=== PATIENT | female | born 1965 | race Hispanic/Latino ===

== ENCOUNTER 2022-01-20 13:40 | Emergency (ER) | payer BC ==
--- OUTSIDE RECORDS SUMMARY | 2022-01-20 13:44 | XMS REPORT | Continuity of Care Document ---
:[address] [facility] t Address [address] [place] [address] Care Team Providers Name Role Phone Pcp, Patient Does Not Have A Primary Care Physician +[id number] Sabine Minor MD Attending Clinician SABINE MINOR Attending Clinician Unavailable Doctor Unassigned, [place] Attending Clinician Unavailable Payers Payer Name Policy Type Policy Number Effective Date Expiration Date S ource Problems Condition Condition Condition Status Onset Resolution Last Treating Co mments Source Name Details Category Date Date Treatment Clinician Date No known No known Disease Unive rs active active ity of problems problems [facility] Allergies, Adverse Reactions, Alerts Allergy Allergy Status Severity Reaction(s) Onset Inactive Treating Comm ents Source Name Type Date Date Clinician NO KNOWN Drug Active Univers ALLERGIE Class it[facility] of [facility] Social History Social Habit Start Date Stop Date Quantity Comments Source History SDOH University o f Alcohol Std [facility] History SDOH [facility] o [facility] B[facility] [place] [facility] History SDCT University o f Alcohol Comment [facility] Exposure to 2021-10-05 2021-10-15 Not sure University SARS-CoV-2 00:00:00 13:11:00 [facility] Tobacco use and 2021-06-06 2021-06-06 Never used Universit y of exposure 00:00:00 00:00:00 [facility] Alcohol intake 2021-06-06 2021-06-06 Lifetime University of 00:00:00 00:00:00 non-drinker [facility] (finding[facility] History SDOH 2021-06-06 2021-06-06 1 University o f Alcohol Frequency 00:00:00 00:00:00 [facility] Sex Assigned At [birth year] Universit y of 00:00:00 00:00:00 [facility] Smoking Status Start Date Stop Date Source Never smoker [facility] Medications Ordered Filled Start Stop Current Ordering Indication Dosage Frequency Signature Comments Components Source Medication Medication Date Date Medication? Clinician (SIG) Name Name No known No Univers medications - ity of 09:39: [facility] No known No Univers medications 06-06 ity of 09:39: [facility] No known No Univers medications 06-06 ity of 09:39: [facility] No known No Univers medications - [facility] of 09:39: [place] [facility] Vital Signs Vital Name Observation Time Observation Value Comments Source Systolic blood 2021-06-06 15:30:00 177 mm[Hg] Univer sity [facility] Diastolic blood 2021-06-06 15:30:00 77 mm[facility]Hg[facility] 2021-06-06 15:29:00 63 /min [facility] Body temperature 2021-06-06 15:29:00 36.33 [facility] Respiratory rate 2021-06-06 15:29:00 18 /min [facility] Body height 2021-06-06 15:29:00 157.5 cm [facility] Body weight 2021-06-06 15:29:00 89.676 kg [facility] BMI 2021-06-06 15:29:00 36.16 kg/m2 [facility] Procedures Procedure Date / Time Performing Clinician Source Performed BI ULTRASOUND BREAST 2021-10-15 19:21:06 Sabine Minor [facility] COMPLETE LEFT Medical Branch BI DIAGNOSTIC 2021-10-15 18:53:55 Sabine Minor [facility] TOMOSYNTHESIS BILATERAL Medical Branch ASSIGNMENT OF BENEFITS 2021-10-15 18:12:31 Doctor Unassigned, No [facility] Name Medical Branch Encounters Start End Encounter Admission Attending Care Care Encounter Source Date/Time Date/Time Type Type Clinicians Facility Department ID 2021-10-152021-10-15 [facility] Sabine Minor [facility] [id number] Univers 13:14:41 23:59:00 Encounter [place] [id number] ity of [place] [id number] [facility] [id number] [facility] 806 Branch 2021-10-15 2021-10-15 Outpatient R SABINE MINOR [facility] [id number] Univers 13:30:00 13:30:00 [id number] ity of [facility] 2021-10-15 2021-10-15 Outpatient R SABINE MINOR [facility] [id number] Univers 13:12:41 13:13:00 ity of [facility] 2021-10-15 2021-10-15 [facility] Sabine Minor [facility] [id number] Univers 13:00:00 13:13:00 Encounter SARAY [id number] ity of [place] [id number] [facility] [id number] [facility] 800 Branch 2021-10-15 2021-10-15 Orders Doctor ANTHONY [id number] Univers 00:00:00 00:00:00 Only Unassigned, DILCIA [id number] ity of [place] [facility] [id number] [facility] [id number] [facility] 009 Branch 2021-06-06 2021-06-06 Office Sabine Minor [facility] [id number] Univers 09:00:00 09:59:52 Visit BRANDON [id number] it y of [facility]S [id number] [facility] [id number] [facility] CL[facility]IC 134 Branch Results This patient has no known results.
[2022-01-20] MEDS ORDERED: TENECTEPLASE 50 MG/10 ML VIAL IV ONE (14:25)
--- NOTE | 2022-01-20 14:29 | EDPHYS ---
Physician Documentation [facility] Name: Shanna Aguilar Age: 56 yrs Sex: Female : 1965 Arrival Date: 01/20/2022 Time: 13:42 Bed 2 Private MD: ED Physician Pantera Bustos HPI: 01/20 14:17 This 56 yrs old Female presents to ER via Wheelchair with complaints of S/S of sky Possible Stroke. 14:17 The patient's problem is reported as a facial droop, weakness, in the right upper sky extremity, in the right lower extremity, in the right side of face. Historical: - Allergies: 13:53 No Known Allergies; iw - Home Meds: 13:53 Unable to obtain [Active]; iw - PMHx: 13:53 None; iw - PSHx: 13:53 None; iw - Immunization history:: Adult Immunizations unknown. - Social history:: Smoking status: unknown. ROS: 14:23 Constitutional: Negative for fever, chills, and weight loss, Eyes: Negative for injury, sky pain, redness, and discharge, ENT: Negative for injury, pain, and discharge, Neck: Negative for injury, pain, and swelling, Respiratory: Negative for shortness of breath, cough, wheezing, and pleuritic chest pain, Abdomen/GI: Negative for abdominal pain, nausea, vomiting, diarrhea, and constipation, Back: Negative for injury and pain, : Negative for injury, bleeding, discharge, and swelling, MS/Extremity: Negative for injury and deformity, Skin: Negative for injury, rash, and discoloration, Psych: Negative for depression, anxiety, suicide ideation, homicidal ideation, and hallucinations, Allergy/Immunology: Negative for hives, rash, and allergies, Endocrine: Negative for neck swelling, polydipsia, polyuria, polyphagia, and marked weight changes, Hematologic/Lymphatic: Negative for swollen nodes, abnormal bleeding, and unusual bruising. 14:23 Cardiovascular: Positive for palpitations. 14:23 Neuro: Positive for weakness, of the face, right arm and right leg. Exam: 14:23 Radiologist reports: negative sky 14:23 Constitutional: This is a well developed, well nourished patient who is awake, alert, and in no acute distress. Head/Face: Normocephalic, atraumatic. Eyes: Pupils equal round and reactive to light, extra-ocular motions intact. Lids and lashes normal. Conjunctiva and sclera are non-icteric and not injected. Cornea within normal limits. Periorbital areas with no swelling, redness, or edema. ENT: Nares patent. No nasal discharge, no septal abnormalities noted. Tympanic membranes are normal and external auditory canals are clear. Oropharynx with no redness, swelling, or masses, exudates, or evidence of obstruction, uvula midline. Mucous membranes moist. Neck: Trachea midline, no thyromegaly or masses palpated, and no cervical lymphadenopathy. Supple, full range of motion without nuchal rigidity, or vertebral point tenderness. No Meningismus. Chest/axilla: Normal chest wall appearance and motion. Nontender with no deformity. No lesions are appreciated. Respiratory: Lungs have equal breath sounds bilaterally, clear to auscultation and percussion. No rales, rhonchi or wheezes noted. No increased work of breathing, no retractions or nasal flaring. Abdomen/GI: Soft, non-tender, with normal bowel sounds. No distension or tympany. No guarding or rebound. No evidence of tenderness throughout. Back: No spinal tenderness. No costovertebral tenderness. Full range of motion. Female : Normal external genitalia. Skin: Warm, dry with normal turgor. Normal color with no rashes, no lesions, and no evidence of cellulitis. MS/ Extremity: Pulses equal, no cyanosis. Neurovascular intact. Full, normal range of motion. Psych: Awake, alert, with orientation to person, place and time. Behavior, mood, and affect are within normal limits. 14:23 Cardiovascular: Rate: tachycardic, Rhythm: irregularly irregular, Pulses: Pulses are 4+ in bilateral radial, brachial, femoral, popliteal, posterior tibial and and dorsalis pedis arteries.. Heart sounds: normal, Edema: is not appreciated, JVD: is not appreciated. 14:23 ECG was reviewed by the Attending Physician. Vital Signs: 13:51 BP 186 / 144; Pulse 66; Resp 16; Temp 98.3(TE); Pulse Ox 100% on R/A; Weight 82.55 kg iw (R); Height 5 ft. 4 in. (162.56 cm); Pain 0/10; 14:14 Weight 87.5 kg; ld1 14:30 BP 152 / 97; Pulse 116; Resp 18; Pulse Ox 99% on R/A; eh3 14:48 BP 146 / 79; Pulse 85; Resp 19; Pulse Ox 100% on R/A; Pain 0/10; eh3 15:02 BP 173 / 85; Pulse 88; Resp 20; Pulse Ox 100% on R/A; Pain 0/10; eh3 15:17 BP 155 / 75; Pulse 97; Resp 20; Pulse Ox 100% on R/A; Pain 0/10; eh3 15:53 BP 151 / 102; Pulse 91; Resp 20; Pulse Ox 98% on R/A; ld1 16:10 BP 130 / 90; Pulse 86; Resp 20; Pulse Ox 100% on R/A; ld1 14:14 Body Mass Index 33.11 (87.50 kg, 162.56 cm) ld1 NIH Stroke Scale Scores: 14:17 NIHSS Score: 3 3 14:25 NIHSS Score: 3 [facility] Trauma Score (Adult): 14:25 Eye Response: spontaneous(1); Verbal Response: oriented(1); Motor Response: obeys [facility] commands(2); Systolic BP: > 89 mm Hg(4); Respiratory Rate: 10 to 29 per min(4); [place] Score: 15; Trauma Score: 12 MDM: 14:05 Patient medically screened. [facility] 14:26 Differential diagnosis: CVA, TIA, metabolic disorder. Data reviewed: vital signs, [facility] nurses notes, EMS record, lab test result(s), EKG, radiologic studies, CT scan, plain films. Data interpreted: vehicle monitor technician: rate is 135 beats/min, rhythm is atrial fibrillation, Pulse oximetry: on room air is 130 %. Test interpretation: by ED physician or midlevel provider: ECG, plain radiologic studies. Counseling: I had a detailed discussion with the patient and/or guardian regarding: the historical points, exam findings, and any diagnostic results supporting the discharge/admit diagnosis, lab results, radiology results, the need to transfer to another facility, for higher level of care, [facility] does not immediately have the required specialist. 01/20 14:17 Order name: Basic Metabolic Panel [facility] 01/20 14:17 Order name: CBC with Diff [facility] 01/20 14:17 Order name: LFT's [facility] 01/20 14:17 Order name: Magnesium [facility] 01/20 14:17 Order name: NT PRO-BNP [facility] 01/20 14:17 Order name: PT-INR [facility] 01/20 14:17 Order name: Troponin HS [facility] 01/20 14:17 Order name: XRAY Chest (1 view) [facility] 01/20 14:17 Order name: CT Stroke Brain w/o Contrast [facility] 01/20 14:17 Order name: SARS RAPID [facility] 01/20 14:20 Order name: CT Head Angio [facility] 01/20 14:20 Order name: CT Neck Angio [facility] 01/20 14:20 Order name: Glucose, Ancillary Testing EDMS 01/20 14:17 Order name: EKG; Complete Time: 14:18 [facility] 01/20 14:17 Order name: Cardiac monitoring; Complete Time: 14:40 [facility] 01/20 14:17 Order name: EKG - Nurse/Tech; Complete Time: 14:40 [facility] 01/20 14:17 Order name: IV Saline Lock; Complete Time: 14:26 [facility] 01/20 14:17 Order name: Labs collected and sent; Complete Time: 14:26 [facility] 01/20 14:17 Order name: O2 Per Protocol; Complete Time: 14:40 [facility] 01/20 14:17 Order name: O2 Sat Monitoring; Complete Time: 14:40 [facility] EC: Rate is 135 beats/min. Rhythm is irregularly irregular, A fib. QRS [place] is Normal. [place] sky interval is normal. QRS interval is normal. QT interval is normal. No Q waves. T waves are Normal. No ST changes noted. Clinical impression: Atrial Fibrillation and No evidence of ischemia. Interpreted by me. Reviewed by me. Administered Medications: 14:20 Drug: TNK FOR STROKE - Tenecteplase 0.25 mg/kg {Co-Signature: ld1 (Yani Wood 3 RN).} Route: IV; Rate: per protocol; Site: right antecubital; 14:21 Follow up: IV Status: Completed infusion 3 15:16 Follow up: Response: Marked relief of symptoms eh3 14:34 Drug: Lopressor (metoprolol TARTRATE) 50 mg Route: PO; eh3 15:15 Follow up: Response: Blood pressure is lowered 3 14:35 Drug: Lopressor (metoprolol) 5 mg Route: IVP; Site: right antecubital; eh3 14:35 Drug: Pepcid (famotidine) 20 mg Route: IVP; Site: right antecubital; eh3 15:14 Follow up: Response: No adverse reaction eh3 14:35 Drug: NS 0.9% 500 ml Route: IV; Rate: bolus; Site: right antecubital; eh3 14:40 Drug: Lopressor (metoprolol) 5 mg Route: IVP; Site: right antecubital; eh3 15:14 Follow up: Response: Blood pressure is lowered eh3 14:45 Drug: NS 0.9% 1000 ml Route: IV; Rate: 125 ml/hr; Site: right antecubital; eh3 14:52 Drug: foLIC Acid 1 mg Route: IVPB; Site: right antecubital; ld1 14:53 Follow up: Response: No adverse reaction; IV Status: Completed infusion eh3 Point of Care Testing: Blood Glucose: 14:20 Blood Glucose: 133 mg/dL; 3 Ranges: Critical Glucose Levels:Adult <50 mg/dl or >400 mg/dl <40 mg/dl or >180 mg/dl Disposition Summary: 01/20/22 14:29 Transfer Ordered Transfer Location: [facility] sky Reason: Higher level of care sky Condition: Serious sky Problem: new sky Symptoms: have improved sky Accepting Physician: to [facility] , neuro icu(01/20/22 16:19) ld1 Diagnosis - Cerebral infarction, unspecified sky - Persistent atrial fibrillation - with RVR, NEW ONSET sky Forms: - Medication Reconciliation Form sky - SBAR form sky Critical care time excluding procedures: 14:26 Critical care time: Bedside Care: 25 minutes, Consultation: 10 minutes, Family sky Intervention: 10 minutes. Total time: 45 minutes NIH Stroke Scale - NIH Stroke Score Date: 01/20/2022 Time: 14:17 Total Score = 3 1a. Level of Consciousness (LOC) - 0(Alert) 1b. Level of Consciousness (LOC) (Month \T\ Age) - 0(Both) 1c. LOC Commands (Open \T\ Closes Eyes/Reduction Furnace Operator) - 0(Both) 2. Best Gaze (Lateral Gaze Paresis) - 0(Normal) 3. Visual Field Loss - 0(No visual loss) 4. Facial Palsy - 1(Minor Paralysis) 5a. Left Arm: Motor (10-second hold) - 0(No drift) 5b. Right Arm: Motor (10-second hold) - 0(No drift) 6a. Left Leg: Motor (5-second hold - always test supine) - 0(No drift) 6b. Right Leg: Motor (5-second hold - always test supine) - 0(No drift) 7. Limb Ataxia (finger/nose \T\ heel/[place] - test with eyes open) - 0(Absent) 8. Sensory Loss (pinprick arms/legs/face) - 1(Mild to moderate loss) 9. Best Language: Aphasia (description/naming/reading) - 0(No aphasia) 10. Dysarthria (speech clarity - read or repeat words) - 1(Mild to Moderate) 11. Extinction and Inattention (visual/tactile/auditory/spatial/personal) - 0(No abnormality) Initials: eh3 NIH Stroke Scale - NIH Stroke Score Date: 01/20/2022 Time: 14:25 Total Score = 3 1a. Level of Consciousness (LOC) - 0(Alert) 1b. Level of Consciousness (LOC) (Month \T\ Age) - 0(Both) 1c. LOC Commands (Open \T\ Closes Eyes/Reduction Furnace Operator) - 0(Both) 2. Best Gaze (Lateral Gaze Paresis) - 0(Normal) 3. Visual Field Loss - 0(No visual loss) 4. Facial Palsy - 1(Minor Paralysis) 5a. Left Arm: Motor (10-second hold) - 0(No drift) 5b. Right Arm: Motor (10-second hold) - 0(No drift) 6a. Left Leg: Motor (5-second hold - always test supine) - 0(No drift) 6b. Right Leg: Motor (5-second hold - always test supine) - 0(No drift) 7. Limb Ataxia (finger/nose \T\ heel/[place] - test with eyes open) - 1(Present in one limb) 8. Sensory Loss (pinprick arms/legs/face) - 1(Mild to moderate loss) 9. Best Language: Aphasia (description/naming/reading) - 0(No aphasia) 10. Dysarthria (speech clarity - read or repeat words) - 0(Normal) 11. Extinction and Inattention (visual/tactile/auditory/spatial/personal) - 0(No abnormality) Initials: sky Signatures: Dispatcher [employer] Pantera Neves MD MD cha Williams, Irene, RN RN iw Yani Wood RN RN ld1 Lorena Alamo RN RN 3 Yani Wood RN ld1 Corrections: (The following items were deleted from the chart) 16:19 14:29 to [facility] , neuro icu sky [email or web address]
--- NOTE | 2022-01-20 14:29 | ER ---
Nurse's Notes [facility] Name: Shanna Aguilar Age: 56 yrs Sex: Female : 1965 Arrival Date: 01/20/2022 Time: 13:42 Bed 2 Private MD: Diagnosis: Cerebral infarction, unspecified;Persistent atrial fibrillation-with RVR, NEW ONSET Presentation: 01/20 13:51 Chief complaint: Spouse and/or significant other states: at 1 today my son called me iw and said that her entire left side went weak and her face started drooping. Coronavirus screen: At this time, the client does not indicate any symptoms associated with coronavirus-19. Ebola Screen: No symptoms or risks identified at this time. An acute neurological deficit is present. The charge nurse has been notified. The patient has been moved to a treatment area. Initial Sepsis Screen: Does the patient meet any 2 criteria? Systolic BP < 90 mmHg. Does the patient have a suspected source of infection? No. Patient's initial sepsis screen is negative. Risk Assessment: Do you want to hurt yourself or someone else? Patient reports no desire to harm self or others. Onset of symptoms was January 20, 2022 at 13:00. 13:51 Method Of Arrival: Wheelchair iw 13:51 Acuity: WAGNER 2 iw 15:26 Pre-hospital glucose is not applicable to this patient. eh3 Triage Assessment: 13:53 The onset of the patients symptoms was January 20, 2022 at 13:00. General: Appears in iw no apparent distress. Behavior is calm, cooperative. Pain: Denies pain. EENT: No deficits noted. No signs and/or symptoms were reported regarding the EENT system. Neuro: Level of Consciousness is awake, alert, obeys commands, Oriented to person, place, time, situation, Truck Washer are equal bilaterally Weakness in left arm(s) leg(s) Gait is steady, Speech is normal, Facial droop on left, Facial symmetry: tongue is midline, Pupils are PERRLA, Reports weakness in left arm and left leg. Cardiovascular: No deficits noted. Respiratory: No deficits noted. GI: No deficits noted. No signs and/or symptoms were reported involving the gastrointestinal system. : No deficits noted. No signs and/or symptoms were reported regarding the genitourinary system. Derm: No deficits noted. No signs and/or symptoms reported regarding the dermatologic system. Musculoskeletal: No deficits noted. No signs and/or symptoms reported regarding the musculoskeletal system. Stroke Activation: Symptom onset < 3 hours Physician: Stroke Attending; Name: adeline; Notified At: ; Arrived At: Physician: Chief Stroke Resident; Name: ; Notified At: ; Arrived At: Physician: Stroke Resident; Name: ; Notified At: ; Arrived At: Physician: ED Attending; Name: ; Notified At: ; Arrived At: Physician: ED Resident; Name: ; Notified At: ; Arrived At: Historical: - Allergies: 13:53 No Known Allergies; iw - Home Meds: 13:53 Unable to obtain [Active]; iw - PMHx: 13:53 None; iw - PSHx: 13:53 None; iw - Immunization history:: Adult Immunizations unknown. - Social history:: Smoking status: unknown. Screenin:17 Abuse screen: Denies threats or abuse. Denies injuries from another. Nutritional eh3 screening: No deficits noted. Tuberculosis screening: No symptoms or risk factors identified. Fall Risk None identified. Assessment: 14:17 VAN Scoring: Arm Drift: Patients demonstrates NO arm weakness. Patient is VAN Negative. eh3 Patient has been NPO before screening. The patient is alert, and able to follow commands. The patient exhibits slurred or garbled speech. The patient is exhibiting difficulty speaking. The patient is exhibiting difficulty understanding words. The patient is able to swallow own secretions with no drooling or need for suction. Patient tolerated one teaspoon of water. No drooling, immediate coughing, gurgling, or clearing of the throat was noted. The patient tolerated 90mL of water. No drooling, immediate coughing, gurgling, or clearing of the throat was noted. The patient passed the bedside swallow screening. Oral medications may be given as ordered. Contact Physician for further diet orders. Provider notified of bedside swallow screening results: Pantera Bustos MD. TNKase (Tenecteplase) Screening: Indications: Definite evidence of stroke, ischemic, embolic, or hypertensive: Yes. Treatment will start within 4.5 hours onset of symptoms: Yes. No evidence of intracranial hemorrhage or CT of head and no evidence of peripheral hemorrhage or recent CVA: Yes. Consent for thrombolytic therapy: Yes. Contraindications: Other: none. General: Appears in no apparent distress. comfortable, Behavior is calm, cooperative, appropriate for age. Pain: Denies pain. Neuro: Navarrete Agitation-Sedation Scale (RASS): 0 - Alert and Calm Level of Consciousness is awake, alert, obeys commands, Oriented to person, place, time, situation. Neuro: Truck Washer are weak on right Moves all extremities. Speech is slurred, Facial droop on right, Pupils are PERRLA, Numbness in dorsal aspect of right forearm, right wrist and right hand. Cardiovascular: Capillary refill < 3 seconds Patient's skin is warm and dry. Respiratory: Airway is patent Respiratory effort is even, unlabored. GI: No signs and/or symptoms were reported involving the gastrointestinal system. Abdomen is round non-distended. : No signs and/or symptoms were reported regarding the genitourinary system. EENT: slight drooping of right side. Derm: No signs and/or symptoms reported regarding the dermatologic system. Musculoskeletal: Range of motion: intact in all extremities. 15:53 Reassessment: Patient appears in no apparent distress at this time. Patient and/or ld1 family updated on plan of care and expected duration. Pain level reassessed. Patient denies pain at this time. Vital Signs: 13:51 BP 186 / 144; Pulse 66; Resp 16; Temp 98.3(TE); Pulse Ox 100% on R/A; Weight 82.55 kg iw (R); Height 5 ft. 4 in. (162.56 cm); Pain 0/10; 14:14 Weight 87.5 kg; ld1 14:30 BP 152 / 97; Pulse 116; Resp 18; Pulse Ox 99% on R/A; eh3 14:48 BP 146 / 79; Pulse 85; Resp 19; Pulse Ox 100% on R/A; Pain 0/10; eh3 15:02 BP 173 / 85; Pulse 88; Resp 20; Pulse Ox 100% on R/A; Pain 0/10; eh3 15:17 BP 155 / 75; Pulse 97; Resp 20; Pulse Ox 100% on R/A; Pain 0/10; eh3 15:53 BP 151 / 102; Pulse 91; Resp 20; Pulse Ox 98% on R/A; ld1 16:10 BP 130 / 90; Pulse 86; Resp 20; Pulse Ox 100% on R/A; ld1 14:14 Body Mass Index 33.11 (87.50 kg, 162.56 cm) ld1 Trauma Score (Adult): 14:25 Eye Response: spontaneous(1); Verbal Response: oriented(1); Motor Response: obeys sky commands(2); Systolic BP: > 89 mm Hg(4); Respiratory Rate: 10 to 29 per min(4); Gadsden Score: 15; Trauma Score: 12 NIH Stroke Scale Scores: 14:17 NIHSS Score: 3 eh3 14:25 NIHSS Score: 3 [facility] ED Course: 13:42 Patient arrived in ED. rg4 13:53 Triage completed. iw 13:53 Arm band placed on right wrist. EKG completed in triage. Results shown to MD. iw 13:58 Lorena Alamo, RN is Primary Nurse. eh3 14:01 Inserted saline lock: 18 gauge in right antecubital area, using aseptic technique. ld1 Blood collected. 14:05 Pantera Bustos MD is Attending Physician. [facility] 14:07 EKG done, by ED staff, reviewed by Pantera Bustos MD. 7 14:17 Patient has correct armband on for positive identification. Placed in gown. Bed in low eh3 position. Call light in reach. Side rails up X2. Adult w/ patient. Client placed on continuous cardiac and pulse oximetry monitoring. NIBP monitoring applied. Door closed. Noise minimized. Lights dimmed. Warm blanket given. 14:17 No provider procedures requiring assistance completed. eh3 14:20 CT Stroke Brain w/o Contrast In Process Unspecified. EDMS 14:24 SARS RAPID Sent. eh3 14:36 transfer to [facility] initiated by dr bustos, admin approval given by isaías PACHECO accepted by dr layton. 14:40 SARS RAPID Sent. eh3 14:52 XRAY Chest (1 view) In Process Unspecified. EDMS 15:18 CT Head Angio In Process Unspecified. EDMS 15:18 CT Neck Angio In Process Unspecified. EDMS 16:18 Patient transferred, IV remains in place. ld1 Administered Medications: 14:20 Drug: TNK FOR STROKE - Tenecteplase 0.25 mg/kg {Co-Signature: ld1 (Yani Wood 3 RN).} Route: IV; Rate: per protocol; Site: right antecubital; 14:21 Follow up: IV Status: Completed infusion eh3 15:16 Follow up: Response: Marked relief of symptoms eh3 14:34 Drug: Lopressor (metoprolol TARTRATE) 50 mg Route: PO; eh3 15:15 Follow up: Response: Blood pressure is lowered eh3 14:35 Drug: Lopressor (metoprolol) 5 mg Route: IVP; Site: right antecubital; eh3 14:35 Drug: Pepcid (famotidine) 20 mg Route: IVP; Site: right antecubital; eh3 15:14 Follow up: Response: No adverse reaction eh3 14:35 Drug: NS 0.9% 500 ml Route: IV; Rate: bolus; Site: right antecubital; eh3 14:40 Drug: Lopressor (metoprolol) 5 mg Route: IVP; Site: right antecubital; eh3 15:14 Follow up: Response: Blood pressure is lowered eh3 14:45 Drug: NS 0.9% 1000 ml Route: IV; Rate: 125 ml/hr; Site: right antecubital; eh3 14:52 Drug: foLIC Acid 1 mg Route: IVPB; Site: right antecubital; ld1 14:53 Follow up: Response: No adverse reaction; IV Status: Completed infusion eh3 Medication: 14:17 VIS not applicable for this client. eh3 Point of Care Testing: Blood Glucose: 14:20 Blood Glucose: 133 mg/dL; eh3 Ranges: Outcome: 14:29 ER care complete, transfer ordered by MD. swanson 16:18 Transferred by ground EMS to [facility]. ld1 16:18 Condition: stable 16:18 Instructed on the need for transfer. 16:19 Patient left the ED. ld1 NIH Stroke Scale - NIH Stroke Score Date: 01/20/2022 Time: 14:17 Total Score = 3 1a. Level of Consciousness (LOC) - 0(Alert) 1b. Level of Consciousness (LOC) (Month \T\ Age) - 0(Both) 1c. LOC Commands (Open \T\ Closes Eyes/Commercial Credit Officer) - 0(Both) 2. Best Gaze (Lateral Gaze Paresis) - 0(Normal) 3. Visual Field Loss - 0(No visual loss) 4. Facial Palsy - 1(Minor Paralysis) 5a. Left Arm: Motor (10-second hold) - 0(No drift) 5b. Right Arm: Motor (10-second hold) - 0(No drift) 6a. Left Leg: Motor (5-second hold - always test supine) - 0(No drift) 6b. Right Leg: Motor (5-second hold - always test supine) - 0(No drift) 7. Limb Ataxia (finger/nose \T\ heel/quintero - test with eyes open) - 0(Absent) 8. Sensory Loss (pinprick arms/legs/face) - 1(Mild to moderate loss) 9. Best Language: Aphasia (description/naming/reading) - 0(No aphasia) 10. Dysarthria (speech clarity - read or repeat words) - 1(Mild to Moderate) 11. Extinction and Inattention (visual/tactile/auditory/spatial/personal) - 0(No abnormality) Initials: eh3 NIH Stroke Scale - NIH Stroke Score Date: 01/20/2022 Time: 14:25 Total Score = 3 1a. Level of Consciousness (LOC) - 0(Alert) 1b. Level of Consciousness (LOC) (Month \T\ Age) - 0(Both) 1c. LOC Commands (Open \T\ Closes Eyes/Commercial Credit Officer) - 0(Both) 2. Best Gaze (Lateral Gaze Paresis) - 0(Normal) 3. Visual Field Loss - 0(No visual loss) 4. Facial Palsy - 1(Minor Paralysis) 5a. Left Arm: Motor (10-second hold) - 0(No drift) 5b. Right Arm: Motor (10-second hold) - 0(No drift) 6a. Left Leg: Motor (5-second hold - always test supine) - 0(No drift) 6b. Right Leg: Motor (5-second hold - always test supine) - 0(No drift) 7. Limb Ataxia (finger/nose \T\ heel/quintero - test with eyes open) - 1(Present in one limb) 8. Sensory Loss (pinprick arms/legs/face) - 1(Mild to moderate loss) 9. Best Language: Aphasia (description/naming/reading) - 0(No aphasia) 10. Dysarthria (speech clarity - read or repeat words) - 0(Normal) 11. Extinction and Inattention (visual/tactile/auditory/spatial/personal) - 0(No abnormality) Initials: syk Signatures: Dispatcher [employer] Kirsten Rocha Corey, MD MD cha Williams, Irene, Peggy Munoz RN4 Yani Wood RN RN ld1 [place] [id number] Lorena Alamo RN RN eh3 Yani Wood RN ld1
[2022-01-20 14:35] LABS: Absolute Lymphocytes (CBC) 2.1 K/uL (0.7-4.9); Hematocrit 38.6 % (36.0-45.0); Lymphocytes % 33.6 % (15.3-44.8); MCV 84.1 fL (80-100); MPV 9.6 fL (7.6-11.3); RBC Red Blood Cell Count 4.59 M/uL (3.86-4.86)
--- NOTE | 2022-01-20 14:35 | RAD REPORT ---
EXAM DESCRIPTION: CT - Ct Stroke Brain Wo Cont - 01/20/2022 2:19 pm CLINICAL HISTORY: Left-sided weakness COMPARISON: none TECHNIQUE: Computed axial tomography of the head was obtained. All CT scans are performed using dose optimization technique as appropriate and may include automated exposure control or mA/KV adjustment according to patient size. FINDINGS: An intracranial bleed is not seen . The ventricles are normal in caliber. No extra-axial fluid collection is noted. No significant hypodensity within the brain Fluid within the sinuses/ mastoids is not seen. IMPRESSION: No acute intracranial abnormality is seen. If patient's symptoms persist MRI of the bra in would be recommended. Dr Bustos of the emergency room was notified at 2:04 p.m. January 20, 2022
[2022-01-20 14:43] LABS: Protime INR 1.11
[2022-01-20] MEDS ORDERED: NA CHLORIDE 0.9% 500 ML ONE ×2 (14:43→16:00)
[2022-01-20] MEDS ORDERED: NA CHLORIDE 0.9% 1,000 ML ONE (14:43)
[2022-01-20] MEDS ORDERED: FAMOTIDINE 20 MG/2 ML VIAL IV ONE (14:43)
[2022-01-20] MEDS ORDERED: METOPROLOL TAR 50 MG TAB ONE (14:43)
[2022-01-20] MEDS ORDERED: METOPROLOL TARTRATE 5 MG/5 ML INJ IV ONE (14:43)
[2022-01-20 14:51] LABS: Albumin 3.5 g/dL (3.4-5.0); Bilirubin Direct 0.2 mg/dL (0-0.2); Bilirubin Total 0.7 mg/dL (0.2-1.0); Magnesium 2.2 mg/dL (1.8-2.4); Potassium 3.6 mmol/L (3.5-5.1); Protein, Total 7.3 g/dL (6.4-8.2); Troponin High Sensitivity 11.5 pg/mL (<58.9)
[2022-01-20] MEDS ORDERED: FOLIC ACID 5 MG/ML VIAL ONE (14:58)
[2022-01-20 15:06] LABS: SARS-CoV-2 Antigen Rapid Res Negative (Negative)
--- NOTE | 2022-01-20 15:33 | RAD REPORT ---
EXAM DESCRIPTION: Kaelyn Angio01/20/2022 3:16 pm CLINICAL HISTORY: Left-sided weakness COMPARISON: None TECHNIQUE: 50 cc Isovue 370 was administered intravenously. 3D MIP reconstruction performed All CT scans are performed using dose optimization technique as appropriate and may include automated exposure control or mA/KV adjustment according to patient size. FINDINGS: Common carotid, internal carotid and external carotid arteries bilaterally are normal jan watson. No significant plaque. Right vertebral artery is a little bit more dominant than the left. No significant stenosis. No dissection seen. IMPRESSION: No significant abnormality is displayed NASCET criteria used. Mild 0-49% stenosis Moderate 50-69% stenosis Severe 70-99% stenosis
--- NOTE | 2022-01-20 15:39 | RAD REPORT ---
EXAM DESCRIPTION: CTHead angio01/20/2022 3:16 pm CLINICAL HISTORY: Left-sided weakness COMPARISON: None TECHNIQUE: CT angiogram of the head was obtained. 3D MIPS reconstruction performed. All CT scans are performed using dose optimization technique as appropriate and may include automated exposure control or mA/KV adjustment according to patient size. FINDINGS: The basilar, internal carotid, anterior cerebral, middle cerebral and posterior cerebral a rteries are normal caliber. An aneurysm is not seen. origin right posterior cerebral artery A significant stenosis is not noted. IMPRESSION: No acute abnormality displayed
--- NOTE | 2022-01-20 16:15 | RAD REPORT ---
EXAM DESCRIPTION: Donal Single View01/20/2022 2:51 pm CLINICAL HISTORY: cough COMPARISON: none FINDINGS: The lungs appear clear of acute infiltrate. The heart is normal size IMPRESSION: No acute abnormalities displayed
[2022-01-20 17:10] VITALS: TEMP 98.3
[2022-01-20 17:24] VITALS: BP 130/90; O2SAT 100
--- NOTE | 2022-01-21 15:40 | EKG ---
Test Date: 2022-01-20 Test Time: 14:00:09 Radio Performer: MB MEASUREMENT RESULTS: Intervals: Rate: 135 UT: QRSD: 76 QT: 316 QTc: 474 Geary: P: UT: QRS: 95 T: 22 INTERPRETIVE STATEMENTS: Atrial fibrillation with rapid ventricular response Rightward axis Nonspecific T wave abnormality Abnormal ECG No previous ECG available for comparison Electronically Signed On 01-21-22 15:38:42 CDT by Willy Marie
== END 2022-01-20 16:19 | disposition short-term general hospital (02) ==
LOC: ER 13:40
DX: I63.9 Cerebral infarction, unspecified (principal); R29.703 NIHSS score 3; Z20.822 Contact with and (suspected) exposure to COVID-19
CPT/HCPCS: 92977; 93005; 85025; 80048; 36415; 83735; 85610; 82947; 80076; 84484; 83880; 70496; 70498; 70450; 71045; 96375; 96374; 99285; 87811; Q9967; J3101; J7040 ×2; J7030